=== PATIENT | male | born 1950 | race African-American/Black ===

== ENCOUNTER → 2017-06-24 | Outpatient (REF) | payer MEDICAID | LOC: M SMT 13:07 | PROVIDERS: ATTEND Nurse Practitioner Women's Health | DX: R97.20 Elevated prostate specific antigen [PSA] (principal) ==

== ENCOUNTER → 2017-07-08 | Outpatient (CLI) | payer MEDICAID | LOC: M SMT PRO 09:04 | DX: C61 Malignant neoplasm of prostate (principal) ==

== ENCOUNTER → 2017-08-31 | Outpatient (CLI) | payer MEDICAID ==
[2017-08-31 14:31] LABS: ALBUMIN 4.3 GM/DL (3.2-5.2); ALBUMIN/GLOBULIN RATIO 1.23 (1.00-1.93); ALKALINE PHOSPHATASE 87 U/L (45-117); ALT/SGPT 52 U/L (12-78); AST/SGOT 27 U/L (7-37); BILIRUBIN,DIRECT 0.2 MG/DL (0.0-0.2); BILIRUBIN,TOTAL 0.8 MG/DL (0.2-1.0); CHOLESTEROL LEVEL 205 MG/DL (<200); CHOLESTEROL RISK RATIO 3.867 (<5); HDL CHOLESTEROL 53 MG/DL (>40); LDL CHOLESTEROL 125.6 MG/DL (<100); NON-HDL-C 152 MG/DL; TOTAL PROTEIN 7.8 GM/DL (6.4-8.2); TRIGLYCERIDES LEVEL 132 MG/DL (<150)
== END ==
LOC: M WUC 09:07
DX: E78.00 Pure hypercholesterolemia, unspecified (principal)
CPT/HCPCS: 80076

== ENCOUNTER 2017-09-13 06:03 | Inpatient (IN) | payer MEDICAID ==
[2017-09-13] MEDS: LevoFLOXacin 500 MG TABLET PO (06:00)
[2017-09-13] MEDS ORDERED: LIDOCAINE 1% MDV 20ML VIAL SQ (06:15)
[2017-09-13] MEDS: LR 1,000 ML IV ×2 (07:00→11:26)
[2017-09-13] MEDS ORDERED: GLYCOPYRROLATE INJ 0.2 MG/ML 2 ML VIAL As Ordered ×2 (08:23→08:47)
[2017-09-13] MEDS ORDERED: LIDOCAINE 2% INJ 100 MG/5 ML SDV (FOR ANES.) As Ordered (08:23)
[2017-09-13] MEDS ORDERED: dexameTHASONE 4 MG/ML 1ML VIAL (J1100) As Ordered (08:23)
[2017-09-13] MEDS ORDERED: HYDROmorphone HCL 2 MG/ML 1ML VIAL (J1170) As Ordered (08:23)
[2017-09-13] MEDS ORDERED: PROPOFOL 200 MG/20 ML VIAL As Ordered ×2 (08:23→10:43)
[2017-09-13] MEDS ORDERED: ROCURONIUM BROMIDE 50 MG/5 ML VIAL As Ordered (08:23)
[2017-09-13] MEDS ORDERED: fentaNYL 250 MCG/5 ML INJECTION (J3010) As Ordered (08:23)
[2017-09-13] MEDS ORDERED: ePHEDrine SULFATE 25 MG/5 ML(5MG/ML) SYRINGE As Ordered ×2 (08:23→10:03)
[2017-09-13] MEDS ORDERED: MIDAZOLAM INJ 2 MG/2 ML VIAL (J2250) As Ordered (08:23)
[2017-09-13] MEDS ORDERED: ONDANSETRON 4MG/2ML VIAL (J2405) As Ordered (08:36)
[2017-09-13] MEDS ORDERED: NEOSTIGMINE 10 MG/10 ML VIAL (J2710) As Ordered (08:47)
[2017-09-13] MEDS ORDERED: fentaNYL 100 MCG/2 ML INJECTION (J3010) IV (11:45)
[2017-09-13] MEDS ORDERED: ONDANSETRON 4MG/2ML VIAL (J2405) IV ×2 (11:45)
[2017-09-13 12:07] LABS: HEMATOCRIT 40.4 % (42.0-52.0); HEMOGLOBIN 13.4 g/dl (14.0-18.0); MEAN CORPUSCULAR HEMOGLOBIN 29.2 pg (27.0-33.0); MEAN CORPUSCULAR HGB CONC 33.2 g/dl (32.0-36.5); PLATELET COUNT, AUTOMATED 211 10^3/uL (150-450); RED BLOOD COUNT 4.59 10^6/uL (4.30-6.10); RED CELL DISTRIBUTION WIDTH 13.2 % (11.5-14.5); WHITE BLOOD COUNT 11.6 10^3/uL (4.0-10.0)
[2017-09-13] MEDS: MORPHINE 10 MG/ML 1ML VIAL (J2270) IV ×3 (12:09→12:22)
[2017-09-13] MEDS: KETOROLAC 30 MG/ML VIAL (J1885) IV ×2 (12:10→20:35)
[2017-09-13] MEDS: KCL 20MEQ IN D5/0.45NS 1000ML 1,000 ML IV ×2 (12:13→21:25)
[2017-09-13] MEDS: ACETAMINOPHEN TAB 650MG DOSE (2X325MG) PO ×2 (12:23→20:33)
[2017-09-13 12:37] LABS: ANION GAP 9 MEQ/L (8-16); BLOOD UREA NITROGEN 13 MG/DL (7-18); CALCIUM LEVEL 8.6 MG/DL (8.8-10.2); CARBON DIOXIDE LEVEL 26 MEQ/L (21-32); CHLORIDE LEVEL 107 MEQ/L (98-107); CREATININE FOR GFR 1.23 MG/DL (0.70-1.30); GLOMERULAR FILTRATION RATE > 60.0 (>49); GLUCOSE, FASTING 113 MG/DL (70-100); POTASSIUM SERUM 3.8 MEQ/L (3.5-5.1); SODIUM LEVEL 142 MEQ/L (136-145)
[2017-09-13] MEDS: PANTOPRAZOLE 40MG INJ (PROTONIX) (C9113) IV (14:54)
[2017-09-13] MEDS: MORPHINE 4 MG/ML 1ML VIAL (J2270) IV (16:28)
[2017-09-13] MEDS: ATORVASTATIN 20 MG TAB PO (20:33)
[2017-09-14] MEDS: ACETAMINOPHEN TAB 650MG DOSE (2X325MG) PO ×3 (04:00→13:39)
[2017-09-14] MEDS: LevoFLOXacin 500 MG TABLET PO (05:37)
[2017-09-14] MEDS: KETOROLAC 30 MG/ML VIAL (J1885) IV ×2 (05:37→13:00)
[2017-09-14 07:03] LABS: HEMATOCRIT 38.8 % (42.0-52.0); HEMOGLOBIN 12.9 g/dl (14.0-18.0); MEAN CORPUSCULAR HEMOGLOBIN 29.1 pg (27.0-33.0); MEAN CORPUSCULAR HGB CONC 33.2 g/dl (32.0-36.5); MEAN CORPUSCULAR VOLUME 87.6 fl (80.0-96.0); PLATELET COUNT, AUTOMATED 188 10^3/uL (150-450); RED BLOOD COUNT 4.43 10^6/uL (4.30-6.10); RED CELL DISTRIBUTION WIDTH 13.6 % (11.5-14.5); WHITE BLOOD COUNT 13.2 10^3/uL (4.0-10.0)
[2017-09-14] MEDS ORDERED: GLYCOPYRROLATE INJ 0.2 MG/ML 2 ML VIAL As Ordered (07:16)
[2017-09-14] MEDS ORDERED: ROCURONIUM BROMIDE 50 MG/5 ML VIAL As Ordered (07:16)
[2017-09-14] MEDS ORDERED: LIDOCAINE 2% INJ 100 MG/5 ML SDV (FOR ANES.) As Ordered (07:16)
[2017-09-14] MEDS ORDERED: NEOSTIGMINE 10 MG/10 ML VIAL (J2710) As Ordered (07:17)
[2017-09-14] MEDS ORDERED: MIDAZOLAM INJ 2 MG/2 ML VIAL (J2250) As Ordered (07:17)
[2017-09-14] MEDS ORDERED: dexameTHASONE 4 MG/ML 1ML VIAL (J1100) As Ordered (07:17)
[2017-09-14] MEDS ORDERED: KETOROLAC 60 MG/2 ML VIAL (J1885) As Ordered (07:17)
[2017-09-14] MEDS ORDERED: ONDANSETRON 4MG/2ML VIAL (J2405) As Ordered (07:17)
[2017-09-14] MEDS ORDERED: PROPOFOL 200 MG/20 ML VIAL As Ordered (07:17)
[2017-09-14] MEDS ORDERED: HYDROmorphone HCL 2 MG/ML 1ML VIAL (J1170) As Ordered (07:17)
[2017-09-14] MEDS ORDERED: fentaNYL 100 MCG/2 ML INJECTION (J3010) As Ordered (07:18)
[2017-09-14 07:22] LABS: ANION GAP 6 MEQ/L (8-16); BLOOD UREA NITROGEN 17 MG/DL (7-18); CALCIUM LEVEL 8.9 MG/DL (8.8-10.2); CARBON DIOXIDE LEVEL 28 MEQ/L (21-32); CHLORIDE LEVEL 104 MEQ/L (98-107); CREATININE FOR GFR 1.27 MG/DL (0.70-1.30); GLOMERULAR FILTRATION RATE > 60.0 (>49); GLUCOSE, FASTING 73 MG/DL (70-100); POTASSIUM SERUM 4.1 MEQ/L (3.5-5.1); SODIUM LEVEL 138 MEQ/L (136-145)
[2017-09-14] MEDS: KCL 20MEQ IN D5/0.45NS 1000ML 1,000 ML IV (08:29)
[2017-09-14] MEDS: NIFEdipine 30 MG XL TAB PO (10:02)
[2017-09-14] MEDS: PREVNAR 13 VACCINE SYRINGE (CPT CODE:90670) IM (12:59)
[2017-09-14] MEDS: PANTOPRAZOLE 40MG INJ (PROTONIX) (C9113) IV (13:25)
== END 2017-09-14 13:43 | disposition home or self-care (01) | DRG 480 ==
LOC: M OR 06:03 → M MSPAV 12:43 → M MS5PR 22:43
PROC: 0VT04ZZ Resection of Prostate, Percutaneous Endoscopic Approach (ICD-10-PCS; principal; 2017-09-13 07:30)
PROC: 0VT34ZZ Resection of Bilateral Seminal Vesicles, Percutaneous Endoscopic Approach (ICD-10-PCS; 2017-09-13 07:30)
PROC: 8E0W4CZ Robotic Assisted Procedure of Trunk Region, Percutaneous Endoscopic Approach (ICD-10-PCS; 2017-09-13 07:30)
PROC: 0VBQ4ZZ Excision of Bilateral Vas Deferens, Percutaneous Endoscopic Approach (ICD-10-PCS; 2017-09-13 07:30)
DX: C61 Malignant neoplasm of prostate (principal); I10 Essential (primary) hypertension; Z79.899 Other long term (current) drug therapy

== ENCOUNTER → 2017-09-27 | Outpatient (CLI) | payer MEDICAID | LOC: M WUC 12:41 | DX: C61 Malignant neoplasm of prostate (principal) | CPT/HCPCS: 87086 ==

== ENCOUNTER → 2017-10-19 | Outpatient (CLI) | payer MEDICAID | LOC: M WUC 13:08 | DX: C61 Malignant neoplasm of prostate (principal) | CPT/HCPCS: 84153 ==

== ENCOUNTER → 2018-03-21 | Outpatient (CLI) | payer OTHER, MEDICAID | LOC: M SMT 11:51 | DX: C61 Malignant neoplasm of prostate (principal) | CPT/HCPCS: 84153 ==

== ENCOUNTER → 2018-04-06 | Outpatient (CLI) | payer OTHER | LOC: M ONCR 13:58 | DX: C61 Malignant neoplasm of prostate (principal) | CPT/HCPCS: 99201 ==

== ENCOUNTER 2018-04-13 10:25 | Outpatient (RCR) | payer OTHER | END 2018-05-03 | LOC: M ONCR 10:25 | DX: C61 Malignant neoplasm of prostate (principal) | CPT/HCPCS: 77300 ==

== ENCOUNTER 2018-05-04 10:25 | Outpatient (RCR) | payer OTHER | END 2018-06-02 | LOC: M ONCR 05-05 10:22 | DX: C61 Malignant neoplasm of prostate (principal) | CPT/HCPCS: 77300 ==

== ENCOUNTER 2018-06-21 10:37 | Outpatient (RCR) | payer OTHER ==
--- NOTE | 2018-06-06 13:52 | RADONC ---
RADIATION ONCOLOGY PROGRESS NOTE DATE: 06/05/2018 CHART NUMBER: [id number] PROGRESS NOTE: Mr. Baird is presently at a dose of 4500 cGy to his prostate and is tolerating treatments quite well at this point with no complaints related to his radiation therapy. He is having no significant urinary or bowel difficulties. No bone pain. REVIEW OF SYSTEMS: The patient's review of systems is noncontributory. Denies nausea, vomiting, fevers, chills, night sweats, diplopia, headaches, anxiety or depression, anorexia, weight loss, visual disturbances, chest pain, urinary or bowel difficulties, bone pain, or neurological problems. PHYSICAL EXAMINATION: The patient's skin is in good condition with no evidence of moist or dry desquamation. The remainder of his physical exam remains unchanged. Mr. Baird is tolerating treatments quite well and radiation will continue as scheduled.
--- NOTE | 2018-06-13 11:39 | RADONC ---
RADIATION ONCOLOGY PROGRESS NOTE DATE OF SERVICE: 06/12/2018 CHART #: [id number] Mr. Baird is presently at a dose of 5400 cGy to his prostate bed and is tolerating treatments quite well at this point with no complaints related to his radiation therapy. He is having no urinary or bowel difficulties and no bone pain. REVIEW OF SYSTEMS: The patient's review of systems is noncontributory. Denies nausea, vomiting, fevers, chills, night sweats, diplopia, headaches, anxiety or depression, anorexia, weight loss, visual disturbances, chest pain, urinary or bowel difficulties, bone pain, or neurological problems. PHYSICAL EXAMINATION: The patient's skin is in good condition with no evidence of moist or dry desquamation. The remainder of his physical exam remains unchanged. Mr. Baird is tolerating treatments quite well and radiation will continue as scheduled.
--- NOTE | 2018-06-20 07:59 | RADONC ---
RADIATION ONCOLOGY PROGRESS NOTE DATE: 06/19/2018 CHART NUMBER: [id number] Mr. Baird is presently at a dose of 6300 cGy to his prostate bed and is tolerating treatments quite well at this point with no complaints related to his radiation therapy. He is having no difficulties with urinary or bowel movements. The patient's review of systems is noncontributory. He denies nausea, vomiting, fevers, chills, night sweats, diplopia, headaches, anxiety or depression, anorexia, weight loss, visual disturbances, chest pain, urinary or bowel difficulties, bone pain, or neurological problems. PHYSICAL EXAMINATION: The patient's skin is in good condition with no evidence of moist or dry desquamation. The remainder of his physical exam remains unchanged. Mr. Baird is tolerating treatments quite well and radiation will continue as scheduled.
[~2018-06-21 10:37] MED LIST: ATOR40TA75 PO; CIPR500T3 PO; LATA5OPD OU; MULT1TAB11 PO; NIFE20CA PO; PERCOCET PO
--- NOTE | 2018-06-22 11:24 | RADONC ---
RADIATION ONCOLOGY TREATMENT SUMMARY DATE: 06/21/2018 CHART NUMBER: [id number] DIAGNOSIS: Prostate cancer. STAGE: IIIB, [id number], grade group 2, Wanda score 7 (3-4), PSA 13.6. ECOG PERFORMANCE STATUS: 0. TREATMENT SUMMARY: Mr. Baird is a very pleasant 68-year-old male with the diagnosis of a stage IIIB, [id number], moderate to poorly differentiated [place] score 7 (3-4) adenocarcinoma of prostate with an initial PSA level of 13.6 who underwent a robotic-assisted prostatectomy and presented to us for postoperative radiation therapy in attempt to increase the likelihood of achieving local control and cure. We treated the patient to his prostate bed for a total dose of 6660 cGy delivered in 37 fractions of 180 cGy each over 56 elapsed days from 04/26/2018 through 06/21/2018. The patient's prostate bed was treated on a linear accelerator utilizing a 15 MV photon beam via a forefield technique with anterior posterior left and right lateral payton. We initially treated to a larger area for a dose of 4500 cGy and subsequently coned down to deliver an additional 2160 cGy to final coned-down field in order to maintain the small bowel and other structures within their tolerance limits. Mr. Baird tolerated his treatments quite well and was able complete therapy as prescribed without interruption. The patient is scheduled to see me again in September when he returns from vacation. He will also continue to be followed by his other physicians as well. cc: Elier Webb MD
== END 2018-07-03 ==
LOC: M ONCR 10:37
PROVIDERS: ATTEND Radiology Radiation Oncology
DX: C61 Malignant neoplasm of prostate (principal)

== ENCOUNTER → 2018-08-24 | Outpatient (CLI) | payer OTHER | LOC: M WUC 13:55 | PROVIDERS: ATTEND Urology | DX: C61 Malignant neoplasm of prostate (principal) ==

== ENCOUNTER → 2018-09-06 | Outpatient (CLI) | payer OTHER ==
--- NOTE | 2018-09-06 10:15 | RADONC ---
RADIATION ONCOLOGY FOLLOWUP NOTE DATE: 09/06/2018 CHART NUMBER: [id number] DIAGNOSIS: Prostate cancer. STAGE III B, [id number], grade group 2, Wanda score 7 (3-4), PSA 13.6. ECOG PERFORMANCE STATUS: 0 FOLLOWUP NOTE: Mr. Baird is a very pleasant 68-year-old male with the diagnosis of a stage III B, [id number] moderate to poorly differentiated Wanda score 7 (3-4) adenocarcinoma of the prostate with initial PSA level 13.6 who is presenting to us today for routine followup visit 2 months post completion of external beam radiation therapy. The patient presents today and is doing quite well with no complaints at this time related to his radiation therapy or disease. He has no urinary or bowel difficulties. No bone pain. The patient's review of systems is noncontributory. He denies nausea, vomiting, fevers, chills, night sweats, diplopia, headaches, anxiety or depression, anorexia, weight loss, visual disturbances, chest pain, urinary or bowel difficulties, bone pain, or neurological problems. PHYSICAL EXAMINATION: The patient is a well-developed, well-nourished black male in no acute distress. HEENT exam is normocephalic, atraumatic. Extraocular movements are intact. There is no palpable cervical, supraclavicular, infraclavicular, axillary, or inguinal lymphadenopathy present. Lungs are clear to auscultation and percussion. Heart has a regular rate and rhythm. Abdomen is benign with no hepatosplenomegaly, masses, or tenderness. Rectal examination reveals a normal anal sphincter tone. His prostate is bed is smooth with no evidence of nodularity or recurrent disease. Skeletal examination reveals no tenderness to pressure or percussion of the bony skeleton. Extremities reveal no clubbing, cyanosis, or edema. Neurologic exam is grossly intact, as is the remainder of the physical examination. ASSESSMENT: The patient is clinically SHRAVAN at this time. He is being followed closely by Dr. Webb who is seeing him every 3 months and undertaking PSA tests. In light of this, I have discharged this patient except on a p.r.n. basis. We are available to him at anytime should he have any questions or if we could be of any assistance. cc: Elier Webb MD
== END ==
LOC: M ONCR 09:17
PROVIDERS: ATTEND Radiology Radiation Oncology
DX: C61 Malignant neoplasm of prostate (principal)

== ENCOUNTER → 2018-11-28 | Outpatient (CLI) | payer OTHER ==
[~2018-11-28] MED LIST changes: +LATA0.0013 OU; -LATA5OPD OU; +XALA0.007 OU
[2018-11-28 19:35] LABS: BLOOD UREA NITROGEN 13 MG/DL (7-18); CALCIUM LEVEL 9.5 MG/DL (8.8-10.2); CARBON DIOXIDE LEVEL 30 MEQ/L (21-32); CHLORIDE LEVEL 105 MEQ/L (98-107); CHOLESTEROL LEVEL 242 MG/DL (<200); CHOLESTEROL RISK RATIO 5.041 (<5); CREATININE FOR GFR 1.07 MG/DL (0.70-1.30); GLOMERULAR FILTRATION RATE > 60.0 (>49); GLUCOSE, FASTING 91 MG/DL (70-100); HDL CHOLESTEROL 48 MG/DL (>40); LDL CHOLESTEROL 161 MG/DL (<100); NON-HDL-C 194 MG/DL; POTASSIUM SERUM 3.7 MEQ/L (3.5-5.1); SODIUM LEVEL 141 MEQ/L (136-145); TRIGLYCERIDES LEVEL 165 MG/DL (<150)
[2018-11-28 20:18] LABS: MALB URINE SIEMENS 17.8 MG/L; MAU/CREAT RATIO 10.9 MCG/MG (0.0-30.0)
== END ==
LOC: M SMT 13:03
PROVIDERS: ATTEND Student in an Organized Health Care Education/Training Program
DX: E78.49 Other hyperlipidemia (principal); I10 Essential (primary) hypertension

== ENCOUNTER → 2018-12-19 | Outpatient (CLI) | payer OTHER | LOC: M WUC 12:00 | PROVIDERS: ATTEND Student in an Organized Health Care Education/Training Program | DX: E03.9 Hypothyroidism, unspecified (principal) ==

== ENCOUNTER → 2019-01-24 | Outpatient (CLI) | payer OTHER ==
--- NOTE | 2019-01-25 05:55 | REP ---
Clinical: Screening for abdominal aortic aneurysm. Technique: Real time jenkins scale ultrasound examination using curved array transducer. Findings: Abdominal aorta demonstrates mild atheromatous plaquing without evidence for aneurysm. No periaortic fluid collections are identified. Proximal aorta 2.1 x 2.6 cm. Mid aorta (renal artery level) 1.9 x 2.1 cm. Mid aorta 1.7 x 1.9 cm. Distal aorta 1.7 x 2.1 cm. Right common iliac artery 1.3 cm maximal diameter. Left common iliac artery 1.3 cm maximal diameter. Impression: Atheromatous plaquing without evidence for abdominal aortic aneurysm. Electronically Signed by Isma Jason MD 01/25/2019 05:48 A
== END ==
LOC: M RAD 09:59
PROVIDERS: ATTEND Student in an Organized Health Care Education/Training Program
DX: Z13.6 Encounter for screening for cardiovascular disorders (principal)

== ENCOUNTER → 2019-02-08 | Outpatient (CLI) | payer OTHER ==
[2019-02-08 15:23] LABS: ALBUMIN 3.7 GM/DL (3.2-5.2); BILIRUBIN,DIRECT 0.2 MG/DL (0.0-0.2); BILIRUBIN,TOTAL 0.6 MG/DL (0.2-1.0); TOTAL PROTEIN 6.9 GM/DL (6.4-8.2)
== END ==
LOC: M WUC 10:34
PROVIDERS: ATTEND Student in an Organized Health Care Education/Training Program
DX: E78.2 Mixed hyperlipidemia (principal)

== ENCOUNTER → 2019-03-28 | Outpatient (CLI) | payer OTHER | LOC: M WUC 12:11 | PROVIDERS: ATTEND Urology | DX: C61 Malignant neoplasm of prostate (principal) ==

== ENCOUNTER → 2019-06-25 | Outpatient (CLI) | payer OTHER | LOC: M WUC 10:24 | PROVIDERS: ATTEND Urology | DX: C61 Malignant neoplasm of prostate (principal) ==

== ENCOUNTER → 2019-11-16 | Outpatient (CLI) | payer OTHER ==
[~2019-11-16] MED LIST changes: +ASPI81TA26 PO; +ATOR80TA59 PO; +NIFE30TA50 PO; +TADA20TA PO
== END ==
LOC: M LABSMTC 09:33
PROVIDERS: ATTEND Anesthesiology
DX: Z01.812 Encounter for preprocedural laboratory examination (principal); Z11.59 Encounter for screening for other viral diseases
CPT/HCPCS: C8903; U0003

== ENCOUNTER → 2019-11-19 | Day surgery (SDC) | payer OTHER ==
[~2019-11-19] VITALS: Ht 167.6 cm; Wt 76.2 kg
[~2019-11-19] MED LIST changes: +LIDOCAINE 2% 100MG/5ML SDV (FOR ANES.) As Ordered ONE; +NS 1,000 ML IV ONE; +propofoL 200 MG/20 ML VIAL As Ordered ONE
--- NOTE | 2019-11-19 08:54 | ROOR ---
Patient Name: Justin Baird Procedure Date: 11/19/2019 8:02 AM Date of : 1950 Age: 69 Room: [facility] Gender: Male Note Status: Finalized Procedure: Total Colonoscopy to Cecum + Cold + Hot Snare Polypectomy + Hemoclips Indications: Screening for colorectal malignant neoplasm Providers: Mingo May MD Referring MD: Jed Treadwell Do Requesting Provider: Medicines: Monitored Anesthesia Care Complications: No immediate complications. Procedure: Pre-Anesthesia Assessment: - The heart rate, respiratory rate, oxygen saturations, blood pressure, adequacy of pulmonary ventilation, and response to care were monitored throughout the procedure. The Colonoscope was introduced through the anus and advanced to the cecum, identified by appendiceal orifice and ileocecal valve. The colonoscopy was performed without difficulty. The patient tolerated the procedure well. The quality of the bowel preparation was excellent. Findings: The perianal and digital rectal examinations were normal. Non-bleeding internal hemorrhoids were found during retroflexion. The hemorrhoids were small and Grade I (internal hemorrhoids that do not prolapse). Multiple small and large-mouthed diverticula were found in the recto-sigmoid colon, sigmoid colon and descending colon. A polyp was found at 25 cm proximal to the anus. The polyp was semi-pedunculated. The polyp was removed with a hot snare. Resection and retrieval were complete. To prevent bleeding after the polypectomy, two hemostatic clips were successfully placed (MR conditional). There was no bleeding at the end of the procedure. Multiple sessile polyps were found at 50 cm proximal to the anus. The polyps were small in size. These polyps were removed with a cold snare. Resection and retrieval were complete. A medium polyp was found at 60 cm proximal to the anus. The polyp was sessile. The polyp was removed with a cold snare. Resection and retrieval were complete. To prevent bleeding after the polypectomy, two hemostatic clips were successfully placed (MR conditional). There was no bleeding at the end of the procedure. A medium polyp was found in the hepatic flexure. The polyp was sessile. The polyp was removed with a cold snare. Resection and retrieval were complete. To prevent bleeding after the polypectomy, one hemostatic clip was successfully placed (MR conditional). There was no bleeding at the end of the procedure. The exam was otherwise without abnormality on direct and retroflexion views. Impression: - Non-bleeding internal hemorrhoids. - Diverticulosis in the recto-sigmoid colon, in the sigmoid colon and in the descending colon. - One polyp at 25 cm proximal to the anus, removed with a hot snare. Resected and retrieved. Clips (MR conditional) were placed. - Multiple small polyps at 50 cm proximal to the anus, removed with a cold snare. Resected and retrieved. - One medium polyp at 60 cm proximal to the anus, removed with a cold snare. Resected and retrieved. Clips (MR conditional) were placed. - One medium polyp at the hepatic flexure, removed with a cold snare. Resected and retrieved. Clip (MR conditional) was placed. - The examination was otherwise normal on direct and retroflexion views. - The exam was otherwise normal to the cecum. Recommendation: - Patient has a contact number available for emergencies. The signs and symptoms of potential delayed complications were discussed with the patient. Return to normal activities tomorrow. Written discharge instructions were provided to the patient. - High fiber diet. - Discharge patient to home. - Continue present medications. - Await pathology results. - Repeat colonoscopy date to be determined after pending pathology results are reviewed for surveillance. - Return to referring physician. - Telephone GI clinic for pathology results in 1 week. - The findings and recommendations were discussed with the patient's family. Mingo May MD Mingo May MD 11/19/2019 8:53:51 AM Electronically signed by Mingo May MD Number of Addenda: 0 Note Initiated On: 11/19/2019 8:02 AM Estimated Blood Loss: Estimated blood loss: none.
[2019-11-19 09:18] VITALS: BP 137/74
== END | disposition home or self-care (01) ==
LOC: M OPP 06:49
PROVIDERS: ATTEND Internal Medicine Gastroenterology
DX: Z12.11 Encounter for screening for malignant neoplasm of colon (principal); D12.3 Benign neoplasm of transverse colon; K64.0 First degree hemorrhoids; K57.30 Diverticulosis of large intestine without perforation or abscess without bleeding; Z87.891 Personal history of nicotine dependence